=== PATIENT | male | born 1995 | race Two or more races ===

== ENCOUNTER 2021-01-28 16:46 | Emergency (ER) | payer SELFPAY ==
[~2021-01-28] VITALS: Ht 177.8 cm; Wt 104.3 kg
[2021-01-28 16:55] VITALS: BP 165/107
[2021-01-28] MEDS ORDERED: KETOROLAC TROMETH 60MG/2ML VIAL IM ONE (21:00)
[2021-01-28] MEDS ORDERED: TETANUS-DIPTH-ACEL PERTUSSIS 0.5ML SYR Tdap IM ONE (21:30)
[2021-01-28] MEDS ORDERED: NEOMYCIN-BACITRACIN-POLYM UNITDOSE PKG TOP OINT TOP ONE (22:00)
== END 2021-01-28 22:13 | disposition home or self-care (01) ==
LOC: ER 16:46
DX: S01.01XA Laceration without foreign body of scalp, initial encounter (principal); X58.XXXA Exposure to other specified factors, initial encounter; Y93.89 Activity, other specified; Y92.89 Other specified places as the place of occurrence of the external cause; Y99.8 Other external cause status
CPT/HCPCS: 12001; 70450; 96372; 99284; J1885